=== PATIENT | female | born 1970 | race Caucasian/White ===

== ENCOUNTER → 2017-07-12 | Outpatient (CLI) | payer OTHER ==
--- NOTE | 2017-07-12 08:34 | US ---
EXAMINATION TYPE: US abdomen complete DATE OF EXAM: 07/12/2017 COMPARISON: NONE CLINICAL HISTORY: Abdominal Tenderness R10.811. RUQ pain, cholecystectomy EXAM MEASUREMENTS: Liver Length: 14.8 cm Gallbladder Wall: Surgically absent CBD: 0.5 cm Spleen: 8.6 cm Right Kidney: 9.1 x 4.6 x 3.9 cm Left Kidney: 11.2 x 4.0 x 4.7 cm Pancreas: wnl Liver: 4.4cm hyperechoic lesion in left lobe may represent a hemangioma, focal fatty infiltration, o r hepatic neoplasm Gallbladder: Surgically absent Evidence for sonographic Norwood's sign: no CBD: wnl Spleen: wnl Right Kidney: wnl Left Kidney: wnl Upper IVC: wnl Abd Aorta: wnl The intrahepatic portion of the IVC and proximal abdominal aorta are within normal limits. Common bi le duct is unremarkable. The visualized portions of the pancreas are homogenous. The spleen is unre markable. Kidneys are symmetric and free of hydronephrosis. No renal lesions are seen. IMPRESSION: Hyperechoic hepatic lesion and could represent focal fatty infiltration, hemangioma, or h epatic neoplasm. Further characterization with dynamic enhanced CT or MR hepatic mass protocol is rec ommended for further characterization.
== END | disposition home or self-care (01) ==
LOC: RADUSWWP 07:12
PROVIDERS: ATTEND Family Medicine
DX: K76.89 Other specified diseases of liver (principal); R10.811 Right upper quadrant abdominal tenderness
CPT/HCPCS: 76700

== ENCOUNTER → 2017-07-18 | Outpatient (CLI) | payer OTHER ==
--- NOTE | 2017-07-18 08:23 | CT ---
EXAMINATION TYPE: CT abdomen wo/w con DATE OF EXAM: 07/18/2017 COMPARISON: Ultrasound 07/12/2017 HISTORY: 47-year-old female RUQ pressure, abnormal US of liver, evaluate for liver mass. TECHNIQUE: Contiguous axial scanning of the abdomen before and after administration of 100 ml Omnipaq ue 300 IV contrast. Delayed images through the kidneys and coronal/sagittal reconstructions performe d. CT DLP: 769.8 mGycm Automated exposure control for dose reduction was used. FINDINGS: The heart is normal size without pericardial effusion. Lung bases clear without pleural effusion. As seen on ultrasound, mass within segment 2 of the left hepatic lobe is demonstrated. This measures approximately 4.6 cm wide by 3.4 cm AP by 2.6 cm craniocaudal. There appears to be internal enhanceme nt particularly on the delayed kidney images with large nodular areas of primarily peripheral enhance ment noted at that time. No biliary ductal dilatation or other focal liver lesions seen. Cholecystectomy clips. Adrenal glands, kidneys, spleen, and pancreas appear within normal limits. No dilated small bowel, free fluid, or free air. No mesenteric or retroperitoneal lymphadenopathy. Mild overall stool burden without pericolonic inflammatory change. The pelvis is not imaged. Bones: Degenerative disc disease within the lumbar spine. IMPRESSION: A 4.6 CM MASS SEGMENT 2 LEFT HEPATIC LOBE CORRESPONDS TO THE ULTRASOUND FINDING. THE FAVORED DIFFEREN TIAL CONSIDERATION IS A SCLEROSED HEMANGIOMA. CHOLANGIOCARCINOMA CAN ALSO SHOW DELAYED PERIPHERAL ENHANCEMENT, CORRELATION WITH TUMOR MARKERS IS RECOMMENDED. IF TUMOR MARKERS ARE NEGATIVE, A FOLLOW-U P ULTRASOUND OR MRI IN 3-6 MONTHS CAN BE PERFORMED.
== END ==
LOC: RADCTMAIN 06:53
PROVIDERS: ATTEND Family Medicine
DX: R16.0 Hepatomegaly, not elsewhere classified (principal)
CPT/HCPCS: 74170; Q9967

== ENCOUNTER → 2017-10-10 | Outpatient (CLI) | payer OTHER ==
--- NOTE | 2017-10-10 07:53 | MR ---
EXAMINATION TYPE: MR liver wo/w con DATE OF EXAM: 10/10/2017 COMPARISON: Complete abdominal ultrasound July 12, 2017. CT abdomen and pelvis dated July 18, 2017 HISTORY: Liver disease, unspecified / Liver lesion. Abnormal ultrasound CONTRAST: Standard multiplanar, multisequence MRI departmental protocol utilizing 7.5 mL intravenous Gadavist g adolinium contrast. FINDINGS: LIVER: Liver is overall within normal limits in size and is not significantly changed from prior CT. There is no suspicious intrahepatic or extrahepatic biliary dilatation. Gallbladder is surgically abs ent. Corresponding to ultrasound and CT in segment 2 superior portion in lateral segment left hepatic lobe there is oval well-circumscribed lesion of T1 hypointensity and T2 hyperintensity measuring marcellus roximately 5.0 cm transversely axial image 30 series 401 x 3.7 cm AP diameter by 3.0 cm craniocaudal diameter coronal image 16 series 201. Dynamic postcontrast images show peripheral nodular enhancement with progressive centripetal filling. Imaging characteristics consistent with hemangioma. No additio nal worrisome solid or cystic intrahepatic mass is identified. There is patent portal vein branching into right, left, and middle portal veins all which are patent and not dilated. There are patent hepa tic veins draining into IVC. OTHER: Lung bases are grossly clear. The pancreas, spleen, and both adrenal glands are normal in size and appear grossly unremarkable. There is no concerning renal mass or hydronephrosis. There is no lugo spicious small or large bowel dilatation. There is no free abdominal fluid collection. There is no lugo spicious abdominal adenopathy. There is slight S-shaped scoliosis in the visualized spine. There is disc space narrowing with hetero geneous endplate changes centered L4-L5 level. IMPRESSION: Redemonstration of solid mass left hepatic lobe with dynamic MRI imaging characteristics consistent w ith hemangioma. Size measurements similar to mildly larger versus prior CT.
== END | disposition home or self-care (01) ==
LOC: RADMRIMAIN 06:12
PROVIDERS: ATTEND Internal Medicine Gastroenterology
DX: R16.0 Hepatomegaly, not elsewhere classified (principal)
CPT/HCPCS: 74183; A9581

== ENCOUNTER → 2017-10-10 | Outpatient (CLI) | payer OTHER ==
[2017-10-10 08:19] LABS: ALT 24 U/L (9-52); AST 16 U/L (14-36); Albumin 4.3 g/dL (3.5-5.0); Alkaline Phosphatase 50 U/L (38-126); Anion Gap 10 mmol/L; Blood Urea Nitrogen 15 mg/dL (7-17); Calcium 9.3 mg/dL (8.4-10.2); Carbon Dioxide 26 mmol/L (22-30); Chloride 104 mmol/L (98-107); Glucose 106 mg/dL (74-99); Potassium 4.7 mmol/L (3.5-5.1); Sodium 140 mmol/L (137-145); Total Bilirubin 0.5 mg/dL (0.2-1.3); Total Protein 7.4 g/dL (6.3-8.2)
[2017-10-10 15:38] LABS: Cancer Antigen 19-9 22.3 U/mL (0.0-34.9)
[2017-10-10 16:00] LABS: Alpha Fetoprotein, Tumor Mkr <1.3 ng/mL (0.0-7.9)
== END | disposition home or self-care (01) ==
LOC: LABWHC1 07:20
PROVIDERS: ATTEND Internal Medicine Gastroenterology
DX: K76.9 Liver disease, unspecified (principal)
CPT/HCPCS: 36415; 80053; 82105; 86301

== ENCOUNTER → 2019-01-24 | Outpatient (CLI) | payer BC ==
--- NOTE | 2019-01-25 07:29 | MM ---
Reason for exam: screening (asymptomatic). Last mammogram was performed 2 years and 7 months ago. History: Patient has history of other cancer at age 29. Family history of breast cancer in maternal aunt. Benign right mammotome panel of the right breast, September 19, 2012. Physical Findings: A clinical breast exam by your physician is recommended on an annual basis and results should be correlated with mammographic findings. MG 3D Screening Mammo W/Cad Bilateral CC and MLO view(s) were taken. Prior study comparison: June 27, 2016, bilateral MG screening mammo w CAD. March 05, 2015, bilateral MG screening mammo w CAD. There are scattered fibroglandular densities. Focal asymmetry right upper outer quadrant, stable. No significant changes when compared with prior studies. ASSESSMENT: Benign, BI-RAD 2 RECOMMENDATION: Routine screening mammogram of both breasts in 1 year.
== END | disposition home or self-care (01) ==
LOC: RADMAMWWP 08:01
PROVIDERS: ATTEND Obstetrics & Gynecology
DX: Z12.31 Encounter for screening mammogram for malignant neoplasm of breast (principal)
CPT/HCPCS: 77063; 77067

== ENCOUNTER → 2019-06-25 | Outpatient (CLI) | payer BC ==
--- NOTE | 2019-06-25 13:41 | MM ---
Reason for exam: clinical finding. Last mammogram was performed 5 months ago. History: Patient has history of other cancer at age 29. Family history of breast cancer in maternal aunt. Benign right mammotome panel of the right breast, September 19, 2012. Took hormonal contraceptives for 10 years beginning at age 17. Physical Findings: Nurse did not find any significant physical abnormalities on exam. MG 3D Diag Mammo W/Cad CALLI Bilateral CC and MLO view(s) were taken. Prior study comparison: January 24, 2019, bilateral MG 3d screening mammo w/cad. June 27, 2016, bilateral MG screening mammo w CAD. The breast tissue is heterogeneously dense. This may lower the sensitivity of mammography. Benign appearing bilateral calcifications. Right skin mole noted, new. Stable right upper outer quadrant focal asymmetry and associated biopsy marker. These results were verbally communicated with the patient and result sheet given to the patient on 06/25/19. ASSESSMENT: Incomplete: need additional imaging evaluation, BI-RAD 0 RECOMMENDATION: Ultrasound of both breasts. (retroareolar, regarding clear nipple discharge)
--- NOTE | 2019-06-25 13:44 | USB ---
Reason for exam: additional evaluation requested from abnormal screening. History: Patient has history of other cancer at age 29. Family history of breast cancer in maternal aunt. Benign right mammotome panel of the right breast, September 19, 2012. Took hormonal contraceptives for 10 years beginning at age 17. US Breast Limited BILAT Right limited breast ultrasound including focal area of concern, retroareolar and axilla demonstrates no cystic or solid lesion seen. Left limited breast ultrasound including focal area of concern, retroareolar and axilla demonstrates prominent ducts, no filling defect. These results were verbally communicated with the patient and result sheet given to the patient on 06/25/19. ASSESSMENT: Benign, BI-RAD 2 RECOMMENDATION: Surgical consultation of both breasts. Manage on a clinical basis with regard to clear nipple discharge. Called Dr. Stanley's office with mammographic findings and has scheduled an appointment for the patient for 08/08/19 at 10:[address] Johansen. PRELIMINARY REPORT CALLED AND FAXED TO DR. JOHANSEN ON 06/25/19.
== END ==
LOC: RADMAMWWP 10:44
PROVIDERS: ATTEND Obstetrics & Gynecology
DX: N64.52 Nipple discharge (principal)
CPT/HCPCS: 77062; 77066

== ENCOUNTER → 2019-07-09 | Outpatient (CLI) | payer BC ==
--- NOTE | 2019-07-09 12:41 | MR ---
EXAMINATION TYPE: MR brain and iac wo/w con DATE OF EXAM: 07/09/2019 COMPARISON: None HISTORY: LEFT SIDE HEARING LOSS, PAST INCIDENT OF DIZZINESS TECHNIQUE: Multiplanar, multisequence images of the brain and brainstem is performed without and with IV contras t, utilizing 7.5 mL intravenous Gadavist . FINDINGS: Diffusion weighted images demonstrate no evidence of a recent infarct or other diffusion ab normality. There is no extra-axial fluid collection or significant white matter signal abnormality. The ventricular system and cisternal spaces are normal in size and appearance. The brain volume is age appropriate. Midline structures demonstrate normal morphology. The craniocervical junction appears within normal limits. Post contrast images demonstrate no abnormal enhancement. The dural venous sinuses appear pa tent. Changes suggest chronic right mastoiditis. Nasal septal deviation seen. Mild changes of chronic sinusitis. There is a 9 mm enhancement involving the left VII\VIII nerve complex, intracanicular portion. IMPRESSION: 1. There is a 9 mm area of enhancement involving the left VII\VIII nerve complex compatible with acou stic schwannoma. 2. Changes of mild sinusitis and right-sided chronic mastoiditis.
== END | disposition home or self-care (01) ==
LOC: RADMRIMAIN 07:47
PROVIDERS: ATTEND Family Medicine
DX: H70.11 Chronic mastoiditis, right ear (principal); J32.9 Chronic sinusitis, unspecified; R42 Dizziness and giddiness
CPT/HCPCS: 70553; A9585

== ENCOUNTER → 2019-08-08 | Outpatient (CLI) | payer BC ==
[2019-08-08 10:13] VITALS: BP 123/80; PULSE 78; RESP 16; TEMP 98.4
--- NOTE | 2019-08-08 11:23 | P.GSHP ---
History of Present Illness H&P Date: 08/08/19 Chief Complaint: bilateral clear nipple discharge Luisa is a 49-year-old white female who states over the past month she has developed bilateral clear nipple discharge. It is spontaneous in nature. She had a recent bilateral mammogram performed on which showed benign bilateral calcifications in the right skin mole noted. Stable right upper outer quadrant focal asymmetry with associated biopsy marker. She additionally had bilateral breast ultrasounds which did not reveal any specific cystic or solid lesions. This was felt to be benign BIRADS 2. During her she developed bloody bilateral nipple discharge. This was followed conservatively and resolved after the pregnancies. The patient denies any pain in her breast. She had had no recent trauma or infection of the breast. She states she had recent prolactin level testing as well as thyroid function studies and those were within normal limits. She was diagnosed recently with an acoustic schwannoma. She had vertigo and had an MRI and at this time is following with ENT physician. Patient had an ablation, but is having hot flashes. Caffiene: 1 pot of coffee in the AM, not drink pop Smoke: none, no second hand smoke Chocolate: daily Hormones: none, no soy products Family History: two maternal aunts: colon and throat ? source Hormonal History: menarche: 11 , breast fed: no, age at first : 25 menopause: ablation at about 39, no periods since than, done for bleeding Hromones: none, BCP: used for 5 years Surgical history: 1. Cholecystectomy Medical history: Neuroma Bilateral clear nipple discharge recently Social History: smoke: occasional for 3 years not smoked for 24 years alcohol: occasional drugs: none - Constitutional Constitutional: Reports sweats - EENT Eyes: denies blurred vision, denies pain Ears: left: decreased hearing (acustic schwanoma), tinnitus Ears, nose, mouth and throat: Reports as per HPI - Breasts Breasts: bilateral: as per HPI - Cardiovascular Cardiovascular: Denies chest pain, Denies shortness of breath - Respiratory Respiratory: Denies cough, Denies 7 - Gastrointestinal Gastrointestinal: Denies abdominal pain, Denies diarrhea, Denies nausea, Denies vomiting - Genitourinary (Female) Genitourinary: Denies dysuria, Denies hematuria - Menstruation Menstruation: Reports amenorrhea - Musculoskeletal Comment: none - Integumentary Comment: basal cell side of face cant remember side Integumentary: Denies pruritus, Denies rash - Neurological Neurological: Denies numbness, Denies weakness - Psychiatric Psychiatric: Reports anxiety - Endocrine Endocrine: Denies fatigue, Denies weight change - Hematologic/Lymphatic Comment: none - Allergic/Immunologic Allergic/Immunologic: Reports seasonal allergies Past Medical History History of Any Multi-Drug Resistant Organisms: None Reported Smoking Status: Former smoker Medications and Allergies Home Medications Medication Instructions Recorded Confirmed Type Escitalopram [Lexapro] 10 mg PO DAILY 08/08/19 08/08/19 History Famotidine [Pepcid AC] 10 mg PO DAILY 08/08/19 08/08/19 History Multivitamin [Multivitamins Adult 1 each PO DAILY 08/08/19 08/08/19 History Gummies] Allergies Allergy/AdvReac Type Severity Reaction Status Date / Time metoclopramide [From Reglan] AdvReac Confusion Unverified 08/08/19 10:14 rofecoxib [From Vioxx] AdvReac Confusion Unverified 08/08/19 10:14 venlafaxine [From Effexor] AdvReac Confusion Unverified 08/08/19 10:14 Surgical - Exam Vital Signs Temp Pulse Resp BP Pulse Ox 98.4 F 78 16 123/80 99 08/08/19 10:10 08/08/19 10:10 08/08/19 10:10 08/08/19 10:10 08/08/19 10:10 BMI 26.6 - General well developed, well nourished, no distress - Eyes normal ocular movement - ENT normal pinna, normal nares, no hearing loss, no congestion - Neck no masses, trachea midline - Respiratory normal expansion, normal respiratory effort, clear to percussion, clear to auscultation - Cardiovascular Rhythm: regular Heart Sounds: normal: S1, S2 - Abdomen Abdomen: soft, non tender, no guarding, no rigid, no rebound - Integumentary normal turgor - Neurologic no disoriented, no combative - Musculoskeletal normal gait, normal posture - Psychiatric oriented to time, oriented to person, oriented to place, speech is normal, memory intact breast exam: Breasts are asymmetric with left breast requiring 38 DDD, however right size is considerably smaller, Ptosis Grade 2/3 Patient has shoulder hatching secondary to the large size of her breast, she also has back pain related to the breast size, It is difficult for patient to find closed secondary to the asymmetry of her breast Right breast: Multiple positional exam fibrocystic changes no dominant masses or nodules of concern no nipple discharge at this time Right axilla: No adenopathy of concern Left breast: Considerably larger than right breast was positional exam fi brocystic changes no dominant masses or nodules of concern no nipple discharge at this time Left axilla: No adenopathy of concern Despite manipulation we were unable to elicit nipple discharge from either breast at this time Results mammogram and ultrasound results reviewed Assessment and Plan Assessment: Impression: 1. Bilateral clear nipple discharge 2. Perimenopausal 3. High caffeine/chocolate intake 4. No mastodynia at this time 5. Fibrocystic breast changes 6. Personal history of basal cell carcinoma 7. Family history of cancer:/Upper GI tract cancer in the second and uncertain of the primary 8. asymmetry of breast 9. macromastia, back pain, notching at shoulders, difficulty with clothes fitting Plan: 1. I suspect that the bilateral clear nipple discharge is fibrocystic in nature. At this time we can manipulate this by decreasing/stopping caffeine and chocolate intake. 2. I also believe that they're probably hormonal changes going on at this time resulting in some of the fibrocystic changes and the clear nipple discharge 3. On today's examination no nipple discharge could be elicited therefore g uaiac testing was not performed however if the patient does have nipple discharge again I would like to see her sooner 4. Otherwise repeat bilateral mammogram in 1 year 5. Repeat physician exam in 6 months, unless patient notes anything of concern sooner 6. appointment with DR. Hill for asymmetry of breast and macromastic Encounter 30 minutes, > 50% spent in remaining counseling
== END | disposition home or self-care (01) ==
LOC: WWCWWP 09:58
PROVIDERS: ATTEND Surgery
DX: Z53.9 Procedure and treatment not carried out, unspecified reason (principal)

== ENCOUNTER → 2020-02-06 | Outpatient (CLI) | payer BC ==
[2020-02-06 16:16] VITALS: BP 117/73; PULSE 72; RESP 18; TEMP 98.5
--- NOTE | 2020-02-06 16:40 | P.PN ---
Subjective Progress Note Date: 02/06/20 Principal diagnosis: nipple discharge Luisa is a 49-year-old white female who was seen in August 2019 with a complaint of bilateral nipple discharge. Since then she has stopped caffeine needed coffee and is taking pro-as well and the discharge was almost completely subsided. It is very sporadic and occurs spontaneously in her bra. She had a recent bilateral mammogram performed on [id number] which showed benign bilateral calcifications. Stable right upper outer quadrant focal asymmetry with associated biopsy marker. She additionally had bilateral breast ultrasounds which did not reveal any specific cystic or solid lesions. This was felt to be benign BIRADS 2. During her she developed bloody bilateral nipple discharge. This was followed conservatively and resolved after the pregnancies. The patient denies any pain in her breast. She had had no recent trauma or infection of the breast. She states she had recent prolactin level testing as well as thyroid function studies and those were within normal limits. She was diagnosed recently with an acoustic schwannoma. She had vertigo and had an MRI and at this time is following with ENT physician. She is due for a repeat MRI to follow this. Patient has complaint of left shoulder pain greater than the right shoulder may be related to size of breast pulling at this site. Patient had a uterine ablation, but is having hot flashes. Caffiene: 1 pot of coffee in the AM,in the past, has stoped this Smoke: none, no second hand smoke Chocolate: occasional Hormones: none, no soy products Patient is using primrose oil at this time Family History: two maternal aunts: colon and throat ? source Hormonal History: menarche: 11 , breast fed: no, age at first : 25 menopause: ablation at about 39, no periods since than, done for bleeding Hromones: none, BCP: used for 5 years Surgical history: 1. Cholecystectomy Medical history: acustic Neuroma Bilateral clear nipple discharge almost stopped Social History: smoke: occasional for 3 years not smoked for 24 years alcohol: occasional drugs: none - Constitutional Constitutional: Reports sweats occasional - EENT Eyes: denies blurred vision, denies pain Ears: left: decreased hearing (acustic schwanoma), tinnitus Ears, nose, mouth and throat: Reports as per HPI - Breasts Breasts: bilateral: as per HPI - Cardiovascular Cardiovascular: Denies chest pain, Denies shortness of breath - Respiratory Respiratory: Denies cough, - Gastrointestinal Gastrointestinal: Denies abdominal pain, Denies diarrhea, Denies nausea, Denies vomiting - Genitourinary (Female) Genitourinary: Denies dysuria, Denies hematuria - Menstruation Menstruation: Reports amenorrhea - Musculoskeletal Comment: none - Integumentary Comment: basal cell side of face cant remember side Integumentary: Denies pruritus, Denies rash - Neurological Neurological: Denies numbness, Denies weakness - Psychiatric Psychiatric: Reports anxiety - Endocrine Endocrine: Denies fatigue, Denies weight change - Hematologic/Lymphatic Comment: none - Allergic/Immunologic Allergic/Immunologic: Reports seasonal allergies Past Medical History History of Any Multi-Drug Resistant Organisms: None Reported Smoking Status: Former smoker Objective - Vital Signs Vital signs: Vital Signs Temp 98.5 F 02/06/20 16:06 Pulse 72 02/06/20 16:06 Resp 18 02/06/20 16:06 BP 117/73 02/06/20 16:06 Pulse Ox 97 02/06/20 16:06 Intake & Output 02/05/20 02/06/20 02/06/20 18:59 06:59 18:59 Weight 79.379 kg - Exam BMI 26.6 - Constitutional General appearance: Present: average body habitus - EENT Eyes: Present: EOMI ENT: Present: hearing grossly normal - Neck Neck: Present: normal ROM - Respiratory Respiratory: bilateral: CTA - Cardiovascular Rhythm: regular Heart sounds: normal: S1, S2 - Gastrointestinal General gastrointestinal: Present: normal bowel sounds, soft - Integumentary Integumentary: Present: normal - Musculoskeletal Musculoskeletal: Present: gait normal - Psychiatric Psychiatric: Present: A&O x's 3, appropriate affect - Additional findings Additional findings: breast exam: BRA: 38DD inspections; no nipple inversion, ptosis grade 3, left breast is larger than the right breast Palpation: Right breast: Multiple positional exam fibrocystic changes no dominant masses or nodules of concern Right axilla: No adenopathy of concern Left breast: Multiple positional exam no dominant masses or nodules of concern Left axilla: No adenopathy of concern Assessment and Plan Assessment: Impression: 1. Asymmetry of the breast 2. Macromastia 3. left shoulder pain 4. Fibrocystic breast changes 5. Decreased nipple discharge Plan: 1. Consult with plastic surgery regarding macromastia 2. Bilateral mammogram June 2020 3. Follow-up here after bilateral mammogram CC: DR. Jason encounter 20 minutes, > 50% of time in planning and counselling
== END | disposition home or self-care (01) ==
LOC: WWCWWP 15:33
PROVIDERS: ATTEND Surgery
DX: Z53.9 Procedure and treatment not carried out, unspecified reason (principal)

== ENCOUNTER → 2020-03-11 | Outpatient (CLI) | payer OTHER ==
--- NOTE | 2020-03-11 22:54 | MR ---
EXAMINATION TYPE: MR brain and iac wo/w con DATE OF EXAM: 03/11/2020 COMPARISON: Prior MRI brain July 09, 2019. HISTORY: Benign neoplasm of cranial nerves, Acoustic neuroma TECHNIQUE: Multiplanar, multisequence images of the brain and brainstem including internal auditory canals are a ll performed without and with IV contrast, utilizing 7.5 mL intravenous Gadavist . FINDINGS: Diffusion weighted images demonstrate no evidence of a recent infarct or other diffusion ab normality. There is no extra-axial fluid collection or significant white matter signal abnormality. The ventricular system and cisternal spaces are normal in size and appearance. The brain volume is age appropriate. Midline structures demonstrate normal morphology. The craniocervical junction appears within normal limits. Post contrast images demonstrate no abnormal enhancement. The dural venous sinuses appear pa tent. Nasal septum stable slightly deviated to right of midline. Globes are intact and paranasal sinu ses are grossly clear. Minimal patchy fluid bilateral mastoid air cells remains present. No new fluid is seen. There is pers istent 9 x 4 x 4 mm enhancing mass left vestibulocochlear complex mass or neoplasm series 801 image 1 0 and coronal series 901 image 9. No significant change. No new enhancing masses present. IMPRESSION: Stable left-sided enhancing neoplasm or acoustic neuroma. No significant change from prio r MRI.
== END | disposition home or self-care (01) ==
LOC: RADMRIMAIN 17:06
PROVIDERS: ATTEND Otolaryngology Otology & Neurotology
DX: D33.3 Benign neoplasm of cranial nerves (principal)
CPT/HCPCS: 70553; A9585

== ENCOUNTER → 2020-09-18 | Outpatient (CLI) | payer OTHER ==
--- NOTE | 2020-09-22 10:32 | MM ---
Reason for exam: screening (asymptomatic). Last mammogram was performed 1 year and 3 months ago. History: Patient is postmenopausal and has history of other cancer at age 29. Family history of breast cancer in maternal aunt. Benign right mammotome panel of the right breast, September 19, 2012. Took hormonal contraceptives for 10 years beginning at age 17. Physical Findings: A clinical breast exam by your physician is recommended on an annual basis and results should be correlated with mammographic findings. MG 3D Screening Mammo W/Cad Bilateral CC and MLO view(s) were taken. Prior study comparison: June 25, 2019, bilateral MG 3d diag mammo w/cad CALLI. January 24, 2019, bilateral MG 3d screening mammo w/cad. June 27, 2016, bilateral MG screening mammo w CAD. March 05, 2015, bilateral MG screening mammo w CAD. The breast tissue is heterogeneously dense. This may lower the sensitivity of mammography. Previous mammotome biopsy in the right breast. Global asymmetry right upper outer quadrant, stable. Benign oil cyst calcifications. No significant changes when compared with prior studies. ASSESSMENT: Negative, BI-RAD 1 RECOMMENDATION: Routine screening mammogram of both breasts in 1 year.
== END | disposition home or self-care (01) ==
LOC: RADMAMWWP 16:32
PROVIDERS: ATTEND Surgery
DX: Z12.31 Encounter for screening mammogram for malignant neoplasm of breast (principal)
CPT/HCPCS: 77063; 77067

== ENCOUNTER → 2020-09-24 | Outpatient (CLI) | payer BC, OTHER ==
[2020-09-24 13:00] VITALS: BP 147/79; PULSE 87; RESP 18; TEMP 98.3
--- NOTE | 2020-09-24 13:03 | P.PN ---
Subjective Progress Note Date: 09/24/20 Principal diagnosis: fibrocystic breast changes Luisa is a 50-year-old white female who was seen in August 2019 with a complaint of bilateral nipple discharge. Since then she has stopped caffeine she changed to decaff coffee and is taking primrose oi, -as well and the d ischarge was almost completely subsided. It is very sporadic and occurs spontaneously in her bra. She states she did note an increase in the discharge at the holiday time when she was eating more chocolate. During her she developed bloody bilateral nipple discharge. This was followed conservatively and resolved after the pregnancies. She has no bloody discharge from the nipples at this time. The patient denies any pain in her breast. She had had no recent trauma or infection of the breast. She does not complain of any lumps masses or nodules in her breast. In the past she has had prolactin level testing as well as thyroid function studies and those were within normal limits. She was diagnosed recently with an acoustic schwannoma. She had vertigo and had an MRI and at this time is following with ENT physician. She is due for a repeat MRI to follow this in December. She had a bilateral mammogram on which was benign BIRADS 1 and the recommendation is for repeat bilateral mammogram in 1 year. Patient has complaint of left shoulder pain greater than the right shoulder may be related to size of breast pulling at this site, this has improved. She saw a plastic surgeon regarding possible breast reduction and is considering this. Patient had a uterine ablation, but is having hot flashes. Caffiene: 1 pot of coffee in the AM,in the past, has stoped this now only drinks decaff Smoke: none, no second hand smoke Chocolate: occasional; but had increased amount over the holidays Hormones: none, no soy products Patient is using primrose oil at this time Family History: two maternal aunts: colon and throat ? source Hormonal History: menarche: 11 , breast fed: no, age at first : 25 menopause: ablation at about 39, no periods since than, done for bleeding Hromones: none, BCP: used for 5 years Surgical history: 1. Cholecystectomy Medical history: acustic Neuroma Bilateral clear nipple discharge almost stopped Social History: smoke: occasional for 3 years not smoked for 24 years alcohol: occasional drugs: none - Constitutional Constitutional: Reports sweats occasional - EENT Eyes: denies blurred vision, denies pain Ears: left: decreased hearing (acustic schwanoma), tinnitus Ears, nose, mouth and throat: Reports as per HPI - Breasts Breasts: bilateral: as per HPI - Cardiovascular Cardiovascular: Denies chest pain, Denies shortness of breath - Respiratory Respiratory: Denies cough, - Gastrointestinal Gastrointestinal: Denies abdominal pain, Denies diarrhea, Denies nausea, Denies vomiting - Genitourinary (Female) Genitourinary: Denies dysuria, Denies hematuria - Menstruation Menstruation: Reports amenorrhea - Musculoskeletal Comment: none - Integumentary Comment: basal cell side of face cant remember side Integumentary: Denies pruritus, Denies rash - Neurological Neurological: Denies numbness, Denies weakness - Psychiatric Psychiatric: Reports anxiety - Endocrine Endocrine: Denies fatigue, Denies weight change - Hematologic/Lymphatic Comment: none - Allergic/Immunologic Allergic/Immunologic: Reports seasonal allergies Objective - Exam BMI 26.6 - Constitutional General appearance: Present: average body habitus - EENT Eyes: Present: EOMI ENT: Present: hearing grossly normal - Neck Neck: Present: normal ROM - Respiratory Respiratory: bilateral: CTA - Cardiovascular Rhythm: regular Heart sounds: normal: S1, S2 - Gastrointestinal General gastrointestinal: Present: normal bowel sounds, soft - Integumentary Integumentary: Present: normal turgor - Musculoskeletal Musculoskeletal: Present: gait normal - Psychiatric Psychiatric: Present: A&O x's 3, appropriate affect, intact judgment & insight - Additional findings Additional findings: Breast Exam: BRA 38DD inspection: bilateral grade 3 ptosis; left breast larger than right breast; bilateral shoulder notching palpation: right breast: Multiple positional exam fibrocystic changes, no nipple discharge on today's exam no dominant masses or nodules of concern Right axilla: No adenopathy of concern Left breast: Fibrocystic changes, multiple positional exam no dominant masses or nodules of concern, no nipple discharge elicited Left axilla: No adenopathy of concern Assessment and Plan Assessment: Impression: 1. Asymmetry of the breast 2. Macromastia 3. Left shoulder pain 4. Fibrocystic breast changes 5. No nipple discharge on today's exam Plan: 1. Bilateral mammogram in 1 year with physician exam at that time Cc: Dr. Jason encounter 15 minutes, > 50% of time on planning and counselling
== END | disposition home or self-care (01) ==
LOC: WWCWWP 12:44
PROVIDERS: ATTEND Surgery
DX: Z53.9 Procedure and treatment not carried out, unspecified reason (principal)

== ENCOUNTER → 2021-09-06 | Outpatient (CLI) | payer OTHER ==
--- NOTE | 2021-09-06 12:25 | MR ---
EXAMINATION TYPE: MR brain and iac wo/w con DATE OF EXAM: 09/06/2021 COMPARISON: MRI brain and IAC March 11, 2020 and older study July 09, 2019 HISTORY: Acoustic neuroma, left hearing loss TECHNIQUE: Multiplanar, multisequence images of the brain and brainstem is performed without and with IV contras t, utilizing 8 mL intravenous Gadavist . FINDINGS: Diffusion weighted images demonstrate no evidence of a recent infarct or other diffusion a bnormality. There is no extra-axial fluid collection or significant white matter signal abnormality. The ventricular system and cisternal spaces are normal in size and appearance. The brain volume is age appropriate. Midline structures demonstrate normal morphology. The craniocervical junction appears within normal limits. Post contrast images demonstrate no abnormal enhancement. The dural venous sinuses appear pa tent. Nasal septum stable slightly deviated to right of midline. Globes are intact and paranasal sinu ses are grossly clear. Increased fluid bilateral right mastoid air cells redemonstrated. No new fluid is seen. There is pers istent 12 x 7 x 4 mm enhancing mass left vestibulocochlear complex mass or neoplasm series 801 image 9 and coronal series 901 image 9. No significant change from prior MRI. No new enhancing masses are p resent. IMPRESSION: Stable left-sided enhancing neoplasm or acoustic neuroma. No significant change from prio r MRI.
== END | disposition home or self-care (01) ==
LOC: RADMRIMAIN 09:38
PROVIDERS: ATTEND Otolaryngology Otology & Neurotology
DX: D33.3 Benign neoplasm of cranial nerves (principal)
CPT/HCPCS: 70553; A9585

== ENCOUNTER → 2021-09-29 | Outpatient (CLI) | payer OTHER ==
--- NOTE | 2021-09-29 11:09 | MM ---
Reason for exam: additional evaluation requested from abnormal screening. Last mammogram was performed less than 1 month ago. History: Patient is postmenopausal and has history of other cancer at age 29. Family history of breast cancer in maternal aunt. Benign right mammotome panel of the right breast, September 19, 2012. Took hormonal contraceptives for 10 years beginning at age 17. Physical Findings: Nurse did not find any significant physical abnormalities on exam. MG 3D Work Up W/Cad LT Spot compression CC and LM view(s) were taken of the left breast. Prior study comparison: September 20, 2021, bilateral MG 3d screening mammo w/cad. September 18, 2020, bilateral MG 3d screening mammo w/cad. The breast tissue is heterogeneously dense. This may lower the sensitivity of mammography. There is no discrete abnormality including area of concern. These results were verbally communicated with the patient and result sheet given to the patient on 09/29/21. ASSESSMENT: Negative, BI-RAD 1 RECOMMENDATION: Return to routine screening mammogram schedule for both breasts.
== END | disposition home or self-care (01) ==
LOC: RADMAMWWP 07:43
PROVIDERS: ATTEND Surgery
DX: R92.8 Other abnormal and inconclusive findings on diagnostic imaging of breast (principal); Z78.0 Asymptomatic menopausal state; Z80.3 Family history of malignant neoplasm of breast
CPT/HCPCS: 77061; 77065

== ENCOUNTER → 2021-10-22 | Outpatient (CLI) | payer OTHER ==
[2021-10-22 13:23] VITALS: BP 124/67; PULSE 68; RESP 17; TEMP 97.9
--- NOTE | 2021-10-22 13:43 | P.PN ---
Subjective Progress Note Date: 10/22/21 Principal diagnosis: Fibrocystic breast changes fibrocystic breast changes Luisa is a 51-year-old white female who was seen in August 2019 with a complaint of bilateral nipple discharge. Since then she has stopped caffeine she changed to decaff coffee and is taking primrose oil as well and the discharge was almost completely subsided. It is very sporadic and occurs spontaneously in her bra. She states she did note an increase in the discharge at the holiday time when she was eating more chocolate. During her she developed bloody bilateral nipple discharge. This was followed conservatively and resolved after the pregnancies. She has no bloody discharge from the nipples at this time. The patient denies any pain in her breast. She had had no recent trauma or infection of the breast. She does not complain of any lumps masses or nodules in her breast. In the past she has had prolactin level testing as well as thyroid function studies and those were within normal limits. She was diagnosed recently with an acoustic schwannoma. She had vertigo and had an MRI and at this time is following with ENT physician. She is due for a repeat MRI to follow this in December. She is going to have this removed later this year. 10-22-21: She had a bilateral mammogram on , with additional views of hte left breast on 09-29-21 which was benign BIRADS 1 and the recommendation is for repeat bilateral mammogram in 1 year. She is not complaining of any new lumps masses or nodules of concern in either breast. The nipple discharge which she had in the past has stopped. Patient has complaint of left shoulder pain greater than the right shoulder may be related to size of breast pulling at this site, this has improved. She saw a plastic surgeon regarding possible breast reduction and is considering this, however she is having issues with her insurance covering a reduction. Patient had a uterine ablation, but is not having hot flashes. Caffiene: 1 pot of coffee in the AM,in the past, has stoped this now only drinks decaff Smoke: none, no second hand smoke Chocolate: occasional; but had increased amount over the holidays Hormones: none, no soy products Patient is using primrose oil at this time Family History: two maternal aunts: colon and throat ? source Hormonal History: menarche: 11 , breast fed: no, age at first : 25 menopause: ablation at about 39, no periods since than, done for bleeding Hormones: none, BCP: used for 5 years Surgical history: 1. Cholecystectomy Medical history: acustic Neuroma Bilateral clear nipple discharge stopped deaf in left ear Social History: smoke: occasional for 3 years not smoked for 24 years alcohol: occasional drugs: none - Constitutional Constitutional: Reports sweats occasional - EENT Eyes: denies blurred vision, denies pain Ears: left: decreased hearing (acustic schwanoma), tinnitus Ears, nose, mouth and throat: Reports as per HPI - Breasts Breasts: bilateral: as per HPI - Cardiovascular Cardiovascular: Denies chest pain, Denies shortness of breath - Respiratory Respiratory: Denies cough, - Gastrointestinal Gastrointestinal: Denies abdominal pain, Denies diarrhea, Denies nausea, Denies vomiting - Genitourinary (Female) Genitourinary: Denies dysuria, Denies hematuria - Menstruation Menstruation: Reports amenorrhea - Musculoskeletal Comment: none - Integumentary Comment: basal cell side of face cant remember side Integumentary: Denies pruritus, Denies rash - Neurological Neurological: Denies numbness, Denies weakness - Psychiatric Psychiatric: Reports anxiety - Endocrine Endocrine: Denies fatigue, Denies weight change - Hematologic/Lymphatic Comment: none - Allergic/Immunologic Allergic/Immunologic: Reports seasonal allergies Objective - Vital Signs Vital signs: Vital Signs Temp 97.9 F 10/22/21 13:19 Pulse 68 10/22/21 13:19 Resp 17 10/22/21 13:19 BP 124/67 10/22/21 13:19 Pulse Ox 98 10/22/21 13:19 Intake & Output 10/21/21 10/22/21 10/22/21 18:59 06:59 18:59 Weight 79.379 kg - Exam BMI: 26.6 - Constitutional General appearance: Present: cooperative - EENT Eyes: Present: EOMI ENT: Present: hard of hearing - Neck Neck: Present: normal ROM - Respiratory Respiratory: bilateral: CTA - Cardiovascular Rhythm: regular Heart sounds: normal: S1, S2 - Gastrointestinal General gastrointestinal: Present: soft - Integumentary Integumentary: Present: normal turgor - Musculoskeletal Musculoskeletal: Present: gait normal - Psychiatric Psychiatric: Present: A&O x's 3, appropriate affect, intact judgment & insight - Additional findings Additional findings: Breast Exam: BRA: 38DD inspection: bilateral grade 3 ptosis; left breast larger than right breast, bilateral shoulder notching palpation: right breast: Multiple positional exam fibrocystic changes no discrete dominant masses or nodules of concern Right axilla: No adenopathy of concern Left breast: Multi-positional exam fibrocystic changes no dominant masses or nodules of concern Left axilla: No adenopathy of concern Assessment and Plan Assessment: Impression: Asymmetry of the breast Symptomatic macromastia Bilateral shoulder notching Fibrocystic breast changes Plan: Bilateral mammogram in 1 year with physician exam at that time Patient will most likely have acoustic neuroma resected later this year Patient will follow up here with any questions or concerns CC: Dr. Jason
== END ==
LOC: WWCWWP 12:57
PROVIDERS: ATTEND Surgery
DX: N60.11 Diffuse cystic mastopathy of right breast (principal); N60.12 Diffuse cystic mastopathy of left breast; N62 Hypertrophy of breast; N64.89 Other specified disorders of breast; Z87.891 Personal history of nicotine dependence; Z88.1 Allergy status to other antibiotic agents; Z88.5 Allergy status to narcotic agent; Z88.8 Allergy status to other drugs, medicaments and biological substances

== ENCOUNTER 2022-09-14 10:16 | Day surgery (SDC) | payer OTHER ==
[2022-09-12 15:34] VITALS: BMI 26.6
[~2022-09-14 10:16] MED LIST: LACTATED RINGERS 1,000 ML IV SCH; LIDOCAINE 1% (10MG/ML) FOR IV START INTRADERMA PRN
[2022-09-14 10:49] VITALS: RESP 16; TEMP 98
[2022-09-14] MEDS ORDERED: PROPOFOL 10 MG/ML 20 ML VIAL IV ONE (11:46)
--- NOTE | 2022-09-14 12:05 | P.PCN ---
Date of Procedure: 09/14/22 Procedure(s) Performed: BRIEF HISTORY: Patient is a 52-year-old pleasant white female scheduled for an elective colonoscopy as a part of screening for colon cancer. Her aunt was diagnosed with colon cancer at age 23. PROCEDURE PERFORMED: Colonoscopy. PREOPERATIVE DIAGNOSIS: Screening for colon cancer and family history of colon cancer. IV sedation per Anesthesia. PROCEDURE: After informed consent was obtained, the patient, was brought into the endoscopy unit. IV sedation was administered by Anesthesia under continuous monitoring. Digital rectal examination was normal. Initially the Olympus CF-160 flexible video colonoscope was then inserted in the rectum, gradually advanced into the cecum without any difficulty. Careful examination was performed as the scope was gradually being withdrawn. Ileocecal valve and the appendiceal orifice were visualized and appeared normal. Prep was excellent. Mucosa of the cecum, ascending colon, transverse colon, descending colon, sigmoid colon, and rectum appeared normal. Scattered sigmoid diverticulosis. Retroflexion was performed in the rectum and no lesions were seen. The patient tolerated the procedure well. IMPRESSION: Normal-appearing colon from rectum to cecum with no evidence of colorectal neoplasia . Scattered sigmoid diverticulosis. RECOMMENDATIONS: Findings of this examination were discussed with the patient as well as a family. She was advised to have a repeat screening colonoscopy every 5 years because of family history of colon cancer..
[2022-09-14 13:14] VITALS: BP 109/76; PULSE 70
== END 2022-09-14 12:45 | disposition home or self-care (01) ==
LOC: ORWHC2ENDO 10:16
PROVIDERS: ATTEND Internal Medicine Gastroenterology
DX: Z12.11 Encounter for screening for malignant neoplasm of colon (principal); K57.30 Diverticulosis of large intestine without perforation or abscess without bleeding; F32.A Depression, unspecified; K21.9 Gastro-esophageal reflux disease without esophagitis; Z88.8 Allergy status to other drugs, medicaments and biological substances; Z79.899 Other long term (current) drug therapy; Z98.890 Other specified postprocedural states; Z80.0 Family history of malignant neoplasm of digestive organs
CPT/HCPCS: 45378; J2704

== ENCOUNTER → 2022-10-03 | Outpatient (CLI) | payer OTHER ==
--- NOTE | 2022-10-04 08:30 | MM ---
Reason for Exam: Screening (asymptomatic). Last screening mammogram was performed 12 month(s) ago. Patient History: Menarche at age 12. First Full-Term at age 25. Postmenopausal. Hormonal Contraceptives, starting at age 17 for 10 years. 09/19/2012, Benign Core Biopsy on the right side. Maternal aunt had breast cancer. Risk Values: Risa 5 year model risk: 1.4%. NCI Lifetime model risk: 11.0%. Prior Study Comparison: 09/18/2020 Bilateral Screening Mammogram, [facility]. 09/20/2021 Bilateral Screening Mammogram, [facility]. 09/29/2021 Left Diagnostic Mammogram, [facility]. Tissue Density: There are scattered fibroglandular densities. Findings: Analyzed By CAD. Right breast biopsy clip. Benign appearing consultations. There is no suspicious group of microcalcifications or new suspicious mass in either breast. Overall Assessment: Benign, BI-RAD 2 Management: Screening Mammogram of both breasts in 1 year. A clinical breast exam by your physician is recommended on an annual basis and results should be correlated with mammographic findings. [facility] will attempt to contact patient to return for supplemental views and ultrasound if indicated. Electronically signed and approved by: Jenaro Bellamy DO
== END | disposition home or self-care (01) ==
LOC: RADMAMWWP 08:05
PROVIDERS: ATTEND Surgery
DX: Z12.31 Encounter for screening mammogram for malignant neoplasm of breast (principal); Z78.0 Asymptomatic menopausal state; Z80.3 Family history of malignant neoplasm of breast
CPT/HCPCS: 77063; 77067

== ENCOUNTER → 2023-01-16 | Outpatient (CLI) | payer OTHER ==
--- NOTE | 2023-01-16 12:26 | MR ---
EXAMINATION TYPE: MR brain and iac wo/w con DATE OF EXAM: 01/16/2023 8:50 AM CLINICAL INDICATION:Female, 52 years old with history of D33.3 BENIGN NEOPLASM OF CRANIAL NERVES; COMPARISON: 09/06/2021 TECHNIQUE: Multi planar, multi sequence imaging was performed through the brain. Specialized thin s equences were obtained through the internal auditory canals. Pre-and post gadolinium sequences were obtained. MR contrast: IV Contrast: 7ml cc Gadavist FINDINGS: The noland-white junctions, ventricular system, and cisterns appear unremarkable. Midline structures s how no abnormality. Diffusion-weighted imaging shows no evidence of restricted diffusion. The suscept ibility weighted images do not reveal any evidence for micro-hemorrhage. The bone marrow signal is within normal limits. Paranasal sinuses : Mild scattered paranasal sinus disease. Visualized orbits: Orbital contents are intact. After administration of gadolinium, no abnormal enhancement is seen. Postsurgical change of the left temporal bone. Previous internal auditory canal lesion is no longer v isualized. There is small amount of enhancement present on series 1001 image 10 on axial imaging and series 1203 image 21 involving the posterior and inferior internal auditory canal, thought to be christopher g the wall. The left 7th and 8th cranial nerves are poorly visualized and could be due to postsurgica l change. The right 7th cranial nerves, 8 cranial nerves, and cerebellar pontine angles appear unrema rkable. After the administration gadolinium, no abnormal enhancement is seen within the right program management intern al auditory canals. Vascular loop: None. IMPRESSION: 1. Postsurgical change with mild enhancement along the inferior and posterior aspects of the interna l auditory canal. Attention on short-term follow-up imaging to ensure stability. Findings favored rep resent postsurgical change and less likely residual tumor given its appearance location along the wal l.. 2. Poor visualization of the left 7th and 8th cranial nerves. Correlate with surgical operative note . 3. No evidence of acute/subacute CVA.
== END | disposition home or self-care (01) ==
LOC: RADMRIMAIN 07:50
PROVIDERS: ATTEND Otolaryngology Otology & Neurotology
DX: D33.3 Benign neoplasm of cranial nerves (principal); Z98.890 Other specified postprocedural states
CPT/HCPCS: 70553; A9585

== ENCOUNTER → 2023-10-11 | Outpatient (CLI) | payer BC ==
--- NOTE | 2023-10-12 08:25 | MM ---
Reason for Exam: Screening (asymptomatic). Last mammogram was performed 1 year(s) and 1 month(s) ago. Patient History: Menarche at age 12. First Full-Term at age 25. Postmenopausal. Hormonal Contraceptives, starting at age 17 for 10 years. 09/19/2012, Benign Core Biopsy on the right side. Maternal aunt had breast cancer. Risk Values: Risa 5 year model risk: 1.5%. NCI Lifetime model risk: 10.8%. Prior Study Comparison: 09/20/2021 Bilateral Screening Mammogram, [facility]. 09/29/2021 Left Diagnostic Mammogram, [facility]. 10/03/2022 Bilateral MG 3D screening mammo w/cad, [facility]. Tissue Density: There are scattered fibroglandular densities. Findings: Analyzed By CAD. There is no suspicious group of microcalcifications or new suspicious mass in either breast. Overall Assessment: Benign, BI-RAD 2 Management: Screening Mammogram of both breasts in 1 year. . Patient should continue monthly self-breast exams. A clinical breast exam by your physician is recommended on an annual basis. This exam should not preclude additional follow-up of suspicious palpable abnormalities. Note on Risa scores and lifetime risk: 1. A Risa score greater than 3% is considered moderate risk. If this is the case, consider specialist referral to assess eligibility for a risk reducing agent. 2. If overall lifetime risk for the development of breast cancer is 20% or higher, the patient may qualify for future screening with alternating mammogram and breast MRI. Electronically signed and approved by: Robert Tran M.D. Radiologis
== END | disposition home or self-care (01) ==
LOC: RADMAMWWP 08:56
PROVIDERS: ATTEND Surgery
DX: Z12.31 Encounter for screening mammogram for malignant neoplasm of breast (principal); Z78.0 Asymptomatic menopausal state; Z80.3 Family history of malignant neoplasm of breast
CPT/HCPCS: 77063; 77067

== ENCOUNTER → 2023-10-12 | Outpatient (CLI) | payer BC ==
--- NOTE | 2023-10-12 10:56 | P.PN ---
Subjective Progress Note Date: 10/12/23 Principal diagnosis: fibrocystic breast changes fibrocystic breast changes Luisa is a 53-year-old white female with the history of bilateral nipple discharge in the past. She noted it was increased when drinking caffeinated beverages. She was treated with primrose oil and stop the caffeine in the discharge completely stopped. The patient has had a prolactin level in the past as well as thyroid function studies and these were within normal limits. Of significance is the fact she was diagnosed with an acoustic neuroma. She had surgery January 25, 2023. They are following with MRI. She is not complaining of any new lumps masses nodules or lesions of concern in either breast. She had a bilateral mammogram in which was BIRADS 2. BRA size 38 DD and does complain of back pain and shoulder notching related to the size of her breast. She is considering breast reduction, but has not pursued it at this time. She was told by a plastic surgeon that her insurance would not cover this. She is not complaining of any new lumps masses or nodules of concern in either breast. She had a bilateral mammogram done on 10-11-2023. Patient had a uterine ablation, but is having hot flashes. She is presently taking estrogen and progesterone. Caffiene: 1 pot of coffee in the AM,in the past, has stoped this now only drinks decaff Smoke: none, no second hand smoke Chocolate: occasional; but had increased amount over the holidays Hormones: none, no soy products Patient is using primrose oil at this time Family History: two maternal aunts: colon and throat ? source Hormonal History: menarche: 11 , breast fed: no, age at first : 25 menopause: ablation at about 39, no periods since than, done for bleeding Hormones: none, BCP: used for 5 years Surgical history: 1. 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 Social History: smoke: occasional for 3 years not smoked for 24 years alcohol: occasional drugs: none - Constitutional Constitutional: Reports sweats occasional - EENT Eyes: denies blurred vision, denies pain Ears: left: decreased hearing (acustic schwanoma), tinnitus Ears, nose, mouth and throat: Reports as per HPI - Breasts Breasts: bilateral: as per HPI - Cardiovascular Cardiovascular: Denies chest pain, Denies shortness of breath - Respiratory Respiratory: Denies cough, - Gastrointestinal Gastrointestinal: Denies abdominal pain, Denies diarrhea, Denies nausea, Denies vomiting - Genitourinary (Female) Genitourinary: Denies dysuria, Denies hematuria - Menstruation Menstruation: Reports amenorrhea - Musculoskeletal Comment: none - Integumentary Comment: basal cell side of face cant remember side Integumentary: Denies pruritus, Denies rash - Neurological Neurological: Denies numbness, Denies weakness - Psychiatric Psychiatric: Reports anxiety - Endocrine Endocrine: Denies fatigue, Denies weight change - Hematologic/Lymphatic Comment: none - Allergic/Immunologic Allergic/Immunologic: Reports seasonal allergies Objective - Vital Signs Vital signs: Intake & Output 10/11/23 10/12/23 10/12/23 18:59 06:59 18:59 Weight 79.832 kg - Constitutional General appearance: Present: cooperative - EENT Eyes: Present: EOMI ENT: Present: hearing grossly normal - Neck Neck: Present: normal ROM - Respiratory Respiratory: bilateral: CTA - Cardiovascular Heart sounds: normal: S1, S2 - Integumentary Integumentary: Present: normal turgor - Musculoskeletal Musculoskeletal: Present: gait normal - Psychiatric Psychiatric: Present: A&O x's 3, appropriate affect, intact judgment & insight - Additional findings Additional findings: Breast Exam: BRA: 38DD inspection: bilateral grade 3 ptosis; left breast larger than right breast, bilateral shoulder notching palpation: right breast: Multiple positional exam fibrocystic changes no discrete dominant masses or nodules of concern Right axilla: No adenopathy of concern Left breast: Multi-positional exam fibrocystic changes no dominant masses or nodules of concern Left axilla: No adenopathy of concern Assessment and Plan Assessment: Impression: Asymmetry of the breast Symptomatic macromastia Bilateral shoulder notching Fibrocystic breast changes bilateral mammogram on 10-11-23 results pending Plan: Bilateral mammogram results pending Patient has put consideration of reduction mammoplasty on hold at this time Dr. Weston
[2023-10-12 11:02] VITALS: BP 120/78; PULSE 64; RESP 16; TEMP 98.1
== END ==
LOC: WWCWWP 09:41
PROVIDERS: ATTEND Surgery
DX: N60.11 Diffuse cystic mastopathy of right breast (principal); N60.12 Diffuse cystic mastopathy of left breast; N62 Hypertrophy of breast; N64.89 Other specified disorders of breast; H91.92 Unspecified hearing loss, left ear; M89.8X1 Other specified disorders of bone, shoulder; Z86.018 Personal history of other benign neoplasm; Z88.8 Allergy status to other drugs, medicaments and biological substances

== ENCOUNTER 2024-01-24 09:59 | Day surgery (SDC) | payer BC ==
[~2024-01-24 09:59] MED LIST changes: -LACTATED RINGERS 1,000 ML IV SCH
[2024-01-24] MEDS: LACTATED RINGERS 1,000 ML IV SCH (10:12)
[2024-01-24 10:41] VITALS: RESP 16; TEMP 98
[2024-01-24] MEDS ORDERED: PROPOFOL 10 MG/ML 20 ML VIAL IV ONE (11:22)
--- NOTE | 2024-01-24 11:31 | P.PCN ---
Date of Procedure: 01/24/24 Procedure(s) Performed: BRIEF HISTORY: Patient is a 53-year-old, pleasant, white female scheduled for an upper endoscopy as a part evaluation of atypical chest pain for the last few months duration.. Presently on Nexium 20 mg daily as well as Pepcid at bedtime and the symptoms are gradually improving. PROCEDURE PERFORMED: Esophagogastroduodenoscopy with biopsy. PREOPERATIVE DIAGNOSIS: Atypical chest pain. IV sedation per anesthesia. PROCEDURE: After informed consent was obtained, the patient was brought into the endoscopy unit. IV sedation was administered by Anesthesia under continuous monitoring. Initially the Olympus GIF-140 video endoscope was inserted into the mouth. Esophagus intubated without any difficulty. It was gradually advanced into the stomach and duodenum and carefully examined. The bulb and the second part of the duodenum appeared normal. The scope at this time was withdrawn to the stomach, adequately insufflated with air, and upon careful examination, mucosa of the antrum, linear areas of erythema consistent with gastritis and biopsies were done from this area. Mucosa of the body, cardia and the fundus appeared normal. Multiple gastric polyps noted in the body the stomach measuring between 5 mm to 1.5 cm in size, which were biopsied. The scope was then withdrawn into the esophagus. Small hiatal hernia noted. The GE junction was located at 39 cm from the incisors. Biopsies were done from the distal esophagus. The esophagus appeared normal. There were no erosions or ulcerations seen and the patient tolerated the procedure well. IMPRESSION: 1. Small hiatal hernia but no evidence of esophagitis or Lambert's esophagus. 2. Multiple gastric polyps. 3. Mild antral gastritis RECOMMENDATIONS: The findings of this examination were discussed with the patient as well as her family. She was advised to continue with Nexium 20 mg daily as well as Pepcid at bedtime and follow antireflux measures. Follow-up in the office in 3 to 4 weeks..
[2024-01-24 12:35] VITALS: BP 112/78; PULSE 75
== END 2024-01-24 12:09 | disposition home or self-care (01) ==
LOC: ORWHC2ENDO 09:59
PROVIDERS: ATTEND Internal Medicine Gastroenterology
DX: K29.50 Unspecified chronic gastritis without bleeding (principal); K31.7 Polyp of stomach and duodenum; K44.9 Diaphragmatic hernia without obstruction or gangrene; J45.909 Unspecified asthma, uncomplicated; K21.9 Gastro-esophageal reflux disease without esophagitis; Z90.89 Acquired absence of other organs; Z98.890 Other specified postprocedural states; Z79.899 Other long term (current) drug therapy
CPT/HCPCS: 88305; 43239; J2704

== ENCOUNTER → 2024-12-20 | Outpatient (CLI) | payer BC ==
--- NOTE | 2024-12-20 08:15 | MM ---
Reason for Exam: Screening (asymptomatic). Last mammogram was performed 1 year(s) and 2 month(s) ago. Patient History: Menarche at age 12. First Full-Term at age 25. Postmenopausal. Hormonal Contraceptives, starting at age 17 for 10 years. 09/19/2012, Benign Core Biopsy on the right side. Maternal aunt had breast cancer. Risk Values: Risa 5 year model risk: 1.6%. NCI Lifetime model risk: 10.7%. Prior Study Comparison: 09/29/2021 Left Diagnostic Mammogram, [facility]. 10/03/2022 Bilateral MG 3D screening mammo w/cad, [facility]. 10/11/2023 Bilateral MG 3D screening mammo w/cad, [facility]. Tissue Density: The breasts are heterogeneously dense, which may obscure small masses. Findings: Analyzed By CAD. There is no suspicious group of microcalcifications or new suspicious mass in either breast. Surgical clip is seen in the upper outer quadrant. Overall Assessment: Benign, BI-RAD 2 Management: Screening Mammogram of both breasts in 1 year. . Patient should continue monthly self-breast exams. A clinical breast exam by your physician is recommended on an annual basis. This exam should not preclude additional follow-up of suspicious palpable abnormalities. Note on Risa scores and lifetime risk: 1. A Risa score greater than 3% is considered moderate risk. If this is the case, consider specialist referral to assess eligibility for a risk reducing agent. 2. If overall lifetime risk for the development of breast cancer is 20% or higher, the patient may qualify for future screening with alternating mammogram and breast MRI. [facility], , 12/20/2024 8:12 AM. Electronically signed and approved by: Terence Banks M.D. Radiologis
== END | disposition home or self-care (01) ==
LOC: RADMAMWWP 07:53
PROVIDERS: ATTEND Surgery
DX: Z12.31 Encounter for screening mammogram for malignant neoplasm of breast (principal); R92.333 Mammographic heterogeneous density, bilateral breasts; Z78.0 Asymptomatic menopausal state; Z80.3 Family history of malignant neoplasm of breast; Z92.0 Personal history of contraception
CPT/HCPCS: 77063; 77067

== ENCOUNTER → 2025-02-28 | Outpatient (CLI) | payer BC ==
--- NOTE | 2025-03-14 11:16 | BMR ---
EXAM DATE: 02/28/2025 EXAM DESCRIPTION: MRI-Breast Bilat (W/WO Contrast) INDICATION: Bilateral nipple discharge. Prior history of excision biopsies. COMPARISON: Prior mammogram dated 12/20/2024 CONTRAST: 7.1 cc Gadavist contrast material. TECHNIQUE: Multi sequence multiplanar MR imaging of the breasts was obtained. Subsequently, after the uneventful intravenous administration of Gadavist contrast material, 6 dynamic sequences were then obtained. Post processing was performed utilizing a [employer] CAD workstation. FINDINGS: The breasts are predominantly fatty replaced. Here is mild background parenchymal enhancement identified. Non enlarged lymph nodes with benign morphology are present in the axillary region. There is no axillary or internal mammary lymphadenopathy. No focal skin thickening or nipple retraction. The bone marrow signal intensity is unremarkable. No adenopathy in the visualized mediastinum. T2 weighted images demonstrated a 0.9 cm T2 bright lesion in the right central breast at 9 position (401 image 43). No dominant cystic lesion in the left breast parenchyma. Trace amount of fluid in the pleural spaces likely physiological. Post contrast images demonstrated no abnormal enhancement in the left breast to suggest malignancy including left retroareolar region. A 1.0 x 0.6 x 0.5 cm persistently enhancing mass in the right central breast in the superolateral quadrant 6 cm posterior to the nipple with bright signal intensity on corresponding T2 weighted images. No abnormal signal in the right retroareolar region. There is no abnormal signal or enhancement in the chest wall or subcutaneous tissue. IMPRESSION: 1. A 1.0 cm persistently enhancing mass in the superolateral quadrant of right breast 6 cm posterior to the nipple. Correlate with second-look ultrasound examination with possible biopsy when clinically appropriate. 2. No MR evidence of malignancy in the left breast. 3. No axillary or internal mammary lymphadenopathy. Final assessment: BI-RADS category 0: Needs additional imaging. MTDD
== END | disposition home or self-care (01) ==
LOC: RADMRIMAIN 18:02
PROVIDERS: ATTEND Surgery
DX: N64.52 Nipple discharge (principal); N63.10 Unspecified lump in the right breast, unspecified quadrant
CPT/HCPCS: 77049; A9585

== ENCOUNTER → 2025-03-21 | Outpatient (CLI) | payer BC ==
--- NOTE | 2025-03-21 12:13 | P.PN ---
Subjective Progress Note Date: 03/21/25 01-31-25 Principal diagnosis: fibrocystic breast changes Luisa is a 54-year-old white female with a history of bilateral nipple discharge in the past. She noted it was increased when drinking caffeine beverages. She was treated with primrose oil and stop the caffeine and the discharge completely stopped. The patient has had a prolactin level in the past as well as thyroid function studies and these were within normal limits. Of significance is the fact she was diagnosed with an acoustic neuroma. She had surgery January 25, 2023. They are following with MRI. She is not complaining of any new lumps masses nodules or lesions of concern in either breast. BRA size 38 DD and does complain of back pain and shoulder notching related to the size of her breast. She is considering breast reduction, but has not pursued it at this time. She was told by a plastic surgeon that her insurance would not cover this. She is not complaining of any new lumps masses or nodules of concern in either breast. She had a bilateral mammogram done on 12-20-24 BIRAD 2 Patient had a uterine ablation, but is having hot flashes. She is presently taking estrogen and testosterone in the cream and takes a pill at night with progesterone. This is being done secondary to vaginal bleeding as well as bladder difficulty, hot flashes, and mood swings. She is using the cream from Dr. Wellington and she is having discharge from both breast the left side is worse. It is clear and leaves a spot in her bra. There is no blood. It is every day. It is bilateral. MRI of the breast 02-28-25 1 cm persistently enhancing mass in the superolateral quadrant of the right breast 6 cm posterior to the nipple correlate with second look ultrasound with possible biopsy No MR evidence of malignancy in the left breast No axillary or internal mammary lymphadenopathy She continues to have daily nipple discharge it is not bloody and not painful. She is continuing to use the hormone cream. She is not feeling any new lumps masses or nodules of concern in either breast. Caffiene: 1 pot of coffee in the AM,in the past, has stopped this now only drinks decaff Smoke: none, no second hand smoke Chocolate: occasional; but had increased amount over the holidays Hormones: none, no soy products Patient is using primrose oil at this time Family History: two maternal aunts: colon and throat ? source Hormonal History: menarche: 11 , breast fed: no, age at first : 25 menopause: ablation at about 39, no periods since than, done for bleeding Hormones: none, BCP: used for 5 years Surgical history: 1. 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 Social History: smoke: occasional for 3 years not smoked for 24 years alcohol: occasional drugs: none - Constitutional Constitutional: Reports sweats occasional - EENT Eyes: denies blurred vision, denies pain Ears: left: decreased hearing (acustic schwanoma), tinnitus Ears, nose, mouth and throat: Reports as per HPI - Breasts Breasts: bilateral: as per HPI - Cardiovascular Cardiovascular: Denies chest pain, Denies shortness of breath - Respiratory Respiratory: Denies cough, - Gastrointestinal Gastrointestinal: Denies abdominal pain, Denies diarrhea, Denies nausea, Denies vomiting - Genitourinary (Female) Genitourinary: Denies dysuria, Denies hematuria - Menstruation Menstruation: Reports amenorrhea - Musculoskeletal Comment: none - Integumentary Comment: basal cell side of face cant remember side Integumentary: Denies pruritus, Denies rash - Neurological Neurological: Denies numbness, Denies weakness - Psychiatric Psychiatric: Reports anxiety - Endocrine Endocrine: Denies fatigue, Denies weight change - Hematologic/Lymphatic Comment: none - Allergic/Immunologic Allergic/Immunologic: Reports seasonal allergies Objective - Constitutional General appearance: Present: cooperative - EENT Eyes: Present: EOMI ENT: Present: hearing grossly normal - Neck Neck: Present: normal ROM - Integumentary Integumentary: Present: normal turgor - Musculoskeletal Musculoskeletal: Present: gait normal - Psychiatric Psychiatric: Present: A&O x's 3, appropriate affect, intact judgment & insight - Additional findings Additional findings: Breast Exam from 01-31-25 BRA: 38DD inspection: bilateral grade 3 ptosis; left breast larger than right breast, bilateral shoulder notching palpation: right breast: Multiple positional exam fibrocystic changes no discrete dominant masses or nodules of concern Right axilla: No adenopathy of concern Left breast: Multi-positional exam fibrocystic changes no dominant masses or nod ules of concern Left axilla: No adenopathy of concern No nipple discharge right or left breast on today's examination Assessment and Plan Assessment: Impression: Asymmetry of the breast Symptomatic macromastia Bilateral shoulder notching Fibrocystic breast changes bilateral mammogram on 12-20-24 BIRAD 2 Recent bilateral nipple discharge corresponding to when patient started taking hormone replacement therapy MRI of the breast 02-28-25 1 cm persistently enhancing mass in the superolateral quadrant of the right breast 6 cm posterior to the nipple correlate with second look ultrasound with possible biopsy No MR evidence of malignancy in the left breast No axillary or internal mammary lymphadenopathy on MRI Plan: MRI of the breast related to bilateral nipple discharge done on 02-28-25/recommend right breast ultrasound to evaluate 1 cm persistently enhancing mass 6 cm posterior to the nipple in the superior lateral quadrant if anything is seen of concern biopsy should be done otherwise MRI guided biopsy Follow-up after MRI guided biopsy or ultrasound-guided biopsy Patient has put consideration of reduction mammoplasty had put that on hold but now is reconsidering it We have discussed hormone replacement therapy and the nipple discharge they are most likely related however secondary to her symptoms she is going to continue the hormone replacement therapy and we are going to do close surveillance of the nipple discharge No nipple discharge could be elicited on past exam and patient declined exam today Dr. Weston
[2025-03-21 12:38] VITALS: BP 120/71; PULSE 76; RESP 16; TEMP 98.9
== END ==
LOC: WWCWWP 11:21
PROVIDERS: ATTEND Surgery
DX: N64.89 Other specified disorders of breast (principal); N62 Hypertrophy of breast; N64.52 Nipple discharge; N60.11 Diffuse cystic mastopathy of right breast; M89.8X9 Other specified disorders of bone, unspecified site; Z79.890 Hormone replacement therapy; Z88.6 Allergy status to analgesic agent; Z88.8 Allergy status to other drugs, medicaments and biological substances; Z87.891 Personal history of nicotine dependence

== ENCOUNTER → 2025-04-01 | Outpatient (CLI) | payer BC ==
--- NOTE | 2025-04-01 08:56 | USB ---
Reason for Exam: Additional evaluation requested from prior study. Patient History: Menarche at age 12. First Full-Term at age 25. Postmenopausal. Hormonal Contraceptives, starting at age 17 for 10 years. 09/19/2012, Benign Core Biopsy on the right side. Maternal aunt had breast cancer. Risk Values: Risa 5 year model risk: 1.6%. NCI Lifetime model risk: 10.7%. Technique: Method: Targeted. Prior Study Comparison: 10/03/2022 Bilateral MG 3D screening mammo w/cad, [facility]. 10/11/2023 Bilateral MG 3D screening mammo w/cad, [facility]. 12/20/2024 Bilateral MG 3D screening mammo w/cad, [facility]. Findings: The lower section of the breast of the right breast, the axilla of the right breast and the retroareolar of the right breast were scanned. Targeted ultrasound initially from 3:00 to 9:00 and then subsequently particular attention 8:00 to 11:00 at the site of MRI finding in the right breast. Additional scanning of the subareolar region and axilla. There is no solid or cystic lesion or axillary adenopathy. No ultrasound correlate to the 02/28/2025 MRI finding is identified. Overall Assessment: Probably benign, BI-RAD 3 Management: Diagnostic Mammogram of the right breast in 6 months. Diagnostic Breast MRI of the right breast in 6 months. Overall lower suspicion due to negative ultrasound and mammographic stability. A clinical breast exam by your physician is recommended on an annual basis and results should be correlated with mammographic findings. This exam should not preclude additional follow-up of suspicious palpable abnormalities. Results were given to the patient verbally at the time of exam. [facility], , 04/01/2025 8:53 AM. Electronically signed and approved by: Mohamud Perdue M.D. Radiologist
== END | disposition home or self-care (01) ==
LOC: RADUSWWP 07:29
PROVIDERS: ATTEND Surgery
DX: N63.10 Unspecified lump in the right breast, unspecified quadrant (principal); Z78.0 Asymptomatic menopausal state; Z80.3 Family history of malignant neoplasm of breast; Z92.0 Personal history of contraception